=== PATIENT | female | born 1975 | race Caucasian/White ===

== ENCOUNTER 2018-03-22 18:39 | Emergency (ER) | payer SELFPAY ==
--- NOTE | 2018-03-22 19:02 | DI.CT.S_ITS ---
PROCEDURE: CT ANGIO CHEST PE PROTOCOL INDICATIONS: CHEST PAIN, SHORTNESS OF BREATH, hypoxia hx CA and smoking TECHNIQUE: After the administration of intravenous contrast, 2 mm thick sections acquired from the pulmonary apices to the posterior costophrenic angles. 3-dimensional maximum intensity projection (MIP) coronal and sagittal reformats were then acquired through the thorax. For radiation dose reduction, the following was used: automated exposure control, adjustment of mA and/or kV according to patient size. COMPARISON: None. FINDINGS: Image quality: Excellent. Pulmonary arteries: Pulmonary arteries are normal in size, and demonstrate no intraluminal filling defects to suggest central pulmonary embolism. Lungs and pleura: Lungs are clear. No pleural effusions or pneumothorax. Central and peripheral airways are patent. Mediastinum: Heart size is normal, without pericardial effusion. No mediastinal or hilar adenopathy. Thoracic aorta is normal in caliber and enhancement. Esophagus is normal in caliber there is a small hernia. Bones and chest wall: No suspicious bony lesions. Ribs and thoracic spine appear intact throughout. Thyroid gland is normal. No axillary or supraclavicular adenopathy. Abdomen: Diffuse fatty infiltration in liver. Visualized upper abdominal solid organs otherwise appear normal in the early arterial phase of enhancement. IMPRESSION: 1. No evidence for central pulmonary embolism. 2. Small hiatal hernia. 3. Hepatic pseudocyst. Dictated by: Jackie Wilkinson M.D. on 03/22/2018 at 19:54 Approved by: Jackie Wilkinson M.D. on 03/22/2018 at 20:07
[2018-03-22 19:11] LABS: Add Manual Diff / Slide Review NO; Eosinophils Percent Auto 0.5 % (2-4); Hematocrit 45.8 % (36-46); Hemoglobin 15.6 g/dL (12.0-16.0); Lymphocytes Percent Auto 33.9 % (25-40); Mean Corpuscular HGB Conc 34.1 % (30-36); Mean Corpuscular Hemoglobin 30.9 PG (26-34); Mean Corpuscular Volume 90.8 fL (80-100); Monocytes Percent Auto 4.3 % (3-14); Neutrophils Absolute Auto 7100 /uL (3000-5900); Neutrophils Percent Auto 60.3 % (50-75); Platelet Count 311 X10^3/uL (150-400); Red Blood Cell Count 5.05 X10^6/uL (4.0-5.2); Red Cell Distribution Width 13.1 % (11.6-14.8); White Blood Cell Count 11.7 X10^3/uL (4.5-11.0)
[2018-03-22 19:19] LABS: Alanine Aminotransferase 40 IU/L (9-52); Albumin 4.5 g/dL (3.5-5.0); Albumin Globulin Ratio 1.4 (1.0-2.8); Alkaline Phosphatase 83 U/L (38-126); Aspartate Aminotransferase 31 IU/L (14-36); BUN Creatinine Ratio 13.8 (6-22); Bilirubin Total 0.7 mg/dL (0.2-1.3); Blood Urea Nitrogen 11 mg/dL (7-17); Calcium 9.4 mg/dL (8.4-10.2); Carbon Dioxide 26 mmol/L (22-32); Chloride 104 mmol/L (98-107); Creatine Kinase 76 U/L (30-135); Estimated Glomerular Filt Rate > 60.0 mL/min (>60); Globulin 3.2 g/dL (1.7-4.1); Glucose 85 mg/dL (70-100); HEMOLYSIS < 15 (0-50); Lipase 161 U/L (23-300); Potassium 3.7 mmol/L (3.4-5.1); Sodium 143 mmol/L (137-145); Total Protein 7.7 g/dL (6.3-8.2)
[2018-03-22] MEDS: ASPIRIN 81 MG TAB 324 MG PO (19:30)
[2018-03-22 19:31] LABS: Troponin I < 0.012 ng/mL (0.01-0.034)
[2018-03-22] MEDS: SODIUM CHLORIDE 0.9% 1,000 ML 150 ML IV (19:31)
--- NOTE | 2018-03-22 19:45 | ED.CHESTPAIN ---
HPI - Chest Pain General Chief Complaint: Chest Pain Stated Complaint: chest pain Time Seen by Provider: 03/22/18 18:42 Source: patient and family Mode of arrival: ambulatory Limitations: no limitations History of Present Illness HPI narrative: 42-year-old female, former smoker presents with her in the chief complaint of off and on occurrences of chest pain and shortness of breath the past 3 weeks. She denies provocation, palliation or radiation of her pain. She states it is sometimes pressure-like and sometimes sharp in mainly on the right side of her chest. It is not associated with any injury. She denies any recent long distance travel, surgeries or change in her activity. She feels fatigued but does not have dizziness, weakness or lightheadedness. Her shortness of breath is also episodic and at times she can become short of breath just with conversation while at times she can walk across the room without difficulty. She denies any fever or chills nor cough productive of sputum, but does admit to the occasional dry and hacking cough in the absence of hemoptysis. Additionally she had a visit with her primary recently an outpatient labs noted a potassium of 7.7 MD complaint: chest pain Onset (ago): week(s) Duration: intermittent Pain location: right chest Severity: moderate Quality: tightness and sharp Pain radiation: none Relieving factors: nothing Exacerbating factors: nothing Associated symptoms: dyspnea Treatments prior to arrival chest pain: none Related Data On Oral Contraceptives: No Allergies Allergy/AdvReac Type Severity Reaction Status Date / Time latex Allergy Mild Rash Verified 03/22/18 18:49 Review of Systems Review of Systems All systems reviewed & are unremarkable except as noted in HPI and below Constitutional Denies chills, Denies fever(s), Denies lethargy and Denies weakness Eyes Denies change in vision, Denies eye discharge, Denies irritation and Denies loss of vision ENT Ears, Nose, Mouth, and Throat: Denies change in voice, Denies neck pain and Denies sore throat Cardiovascular Reports chest pain, Denies irregular heart rhythm, Denies lightheadedness, Denies palpitations, Reports dyspnea, Denies dyspnea on exertion and Denies orthopnea Respiratory Denies cough, Reports dyspnea, Denies dyspnea on exertion and Denies wheezing Gastrointestinal Gastrointestinal: Denies abdominal pain, Denies change in bowel habits, Denies diarrhea, Denies nausea and Denies vomiting Genitourinary Denies hematuria, Denies flank pain, Denies urinary incontinence and Denies urinary urgency Musculoskeletal Denies neck pain Integumentary/Breasts Denies pruritus, Denies erythema, Denies rash and Denies wounds Neurologic Denies confusion, Denies loss of vision and Denies weakness Psychiatric Denies anxiety, Denies confusion, Denies depression, Denies homicidal ideation and Denies suicidal ideation Endocrine Denies palpitations Hematologic/Lymphatic Denies easy bruising Allergic/Immunologic Denies wheezing PFSH Medical History Cervical cancer (Acute) Surgical History History of third molar tooth extraction Status post appendectomy Status post ovarian cystectomy Exam Initial Vital Signs Initial Vital Signs: Vital Signs Pulse Rate 85 03/22/18 21:02 Respiratory Rate 14 03/22/18 21:02 Blood Pressure 123/72 03/22/18 21:02 Pulse Oximetry 98 03/22/18 21:02 Const General: cooperative, well developed and anxious Nutritional Appearance: well nourished Orientation: alert, awake, oriented x3 and not confused HENWY Head: normocephalic and atraumatic Ears: external ears normal and TM's normal bilaterally Nose: external nose normal and No nasal discharge Face and sinus: sinuses nontender, face symmetric, no sinus tenderness and No dry mucous membranes Mouth: oral mucosae normal and moist mucous membranes Teeth and gingiva: dentition normal Throat: tonsils normal and uvula midline Eyes General: appearance normal, both eyes and all related structures Eyelids: eyelids normal Conjunctivae: conjunctivae normal Sclera: sclerae normal Pupils: PERRL EOM: EOM intact bilaterally Neck Neck: normal visual inspection, trachea midline, No lymphadenopathy, No midline deformity and No JVD Lymphatic: No lymphedema Chest Chest: normal inspection of the chest Resp Effort & Inspection: normal respiratory effort, able to speak in complete sentences, no respiratory distress and no use of accessory muscles Auscultation: clear to auscultation bilaterally, no rales, no rhonchi and no wheezes Cardio Rate: regular rate Rhythm: regular rhythm Heart Sounds: no click, no gallops, no murmurs and no rubs Pulses: normal peripheral pulses GI Inspection: non-distended Palpation: soft, no hepatosplenomegaly, No guarding, No pulsatile mass and No tender Auscultation: normal bowel sounds Back/Spine/Pelvis Back: No CVA tenderness Cervical Spine: cervical ROM normal and No pain with cervical ROM Thoracic/Lumbar Spine: thoracic and lumbar spine normal to inspection Skin General: no rashes or lesions noted, No jaundice and No petechiae Neuro General: alert, oriented x3, gait normal and no focal motor deficits Speech: speech normal Extrem General: full ROM, no clubbing, cyanosis or edema, no pedal edema and no calf tenderness Psych Appearance: well kempt Mental Status: mental status grossly normal Attitude: cooperative Thought Content: normal and suicidality Judgment: judgment good Course Orders Ordered: Discontinued Medications Aspirin (Aspirin Chew) 324 mg PO NOW ONE Stop: 03/22/18 18:48 Last Admin: 03/22/18 19:30 Dose: 324 mg Sodium Chloride (Normal Saline 0.9%) 1,000 mls @ 150 mls/hr IV CONT SHAYNA Last Infusion: 03/22/18 21:00 Dose: 0 mls/hr Admin: 03/22/18 19:31 Dose: 150 mls/hr Reevaluation(s) Reevaluation #1: No active chest pain or shortness of breath. Repeat potassium notes 3.7, earlier critical value from outside facility likely a lab error Time: 19:50 MDM - Chest Pain Lab Data Result diagrams: 03/22/18 18:55 03/22/18 18:55 Lab Results 03/22/18 03/22/18 Range/Units 18:55 18:55 WBC 11.7 H (4.5-11.0) X10^3/uL RBC 5.05 (4.0-5.2) X10^6/uL Hgb 15.6 (12.0-16.0) g/dL Hct 45.8 (36-46) % MCV 90.8 (80-100) fL MCH 30.9 (26-34) PG MCHC 34.1 (30-36) % RDW 13.1 (11.6-14.8) % Plt Count 311 (150-400) X10^3/uL Neut % (Auto) 60.3 (50-75) % Lymph % (Auto) 33.9 (25-40) % [place] % (Auto) 4.3 (3-14) % Eos % (Auto) 0.5 L (2-4) % Baso % (Auto) 1.0 (0-2) % Neut # (Auto) 7100 H (0545-8281) /uL Sodium 143 (137-145) mmol/L Potassium 3.7 (3.4-5.1) mmol/L Chloride 104 (98-107) mmol/L Carbon Dioxide 26 (22-32) mmol/L BUN 11 (7-17) mg/dL Creatinine 0.80 (0.52-1.04) mg/dL Estimated GFR > 60.0 (>60) mL/min BUN/Creatinine Ratio 13.8 (6-22) Glucose 85 (70-100) mg/dL Calcium 9.4 (8.4-10.2) mg/dL Total Bilirubin 0.7 (0.2-1.3) mg/dL AST 31 (14-36) IU/L ALT 40 (9-52) IU/L Alkaline Phosphatase 83 (38-126) U/L Total Creatine Kinase 76 (30-135) U/L CK-MB (CK-2) TNP CK-MB (CK-2) Rel Index TNP Troponin I < 0.012 (0.01-0.034) ng/mL Total Protein 7.7 (6.3-8.2) g/dL Albumin 4.5 (3.5-5.0) g/dL Globulin 3.2 (1.7-4.1) g/dL Albumin/Globulin Ratio 1.4 (1.0-2.8) Lipase 161 (23-300) U/L Discharge Plan Departure Patient Disposition: Home Clinical Impression: Atypical chest pain Discharge Date/Time: 03/22/18 21:01 Interventions: ED Discharge Assessment Last Done: 03/22/18 21:02 Instructions: DI for Atypical Chest Pain Activity Restrictions/Additional Instructions: *You have been diagnosed with [ atypical chest pain and dyspnea ] *What to do: * continue to take medications as directed *Follow up with your primary care provider in 2-3 days, call for an appointment. Let them know you were seen in the Emergency Department and that we ask that you be seen in follow up *Return to ER if you should have any new, worsening or concerning symptoms Referrals: Ru Jim MD [Primary Care Provider] -
[2018-03-22 21:02] VITALS: BP 123/72; PULSE 85; RESP 14; O2SAT 98
== END 2018-03-22 21:01 | disposition home or self-care (01) ==
PROVIDERS: Emergency Provider Emergency Medicine; PCP Family Medicine
DX: R07.89 Other chest pain (principal)
CPT/HCPCS: 36591; 71275; 80053; 82550; 83690; 84484; 85025; 93005; 96360; 99282; 99285; Q9967

== ENCOUNTER → 2018-03-26 10:27 | Outpatient (CLI) | payer SELFPAY ==
--- NOTE | 2018-04-02 08:13 | PM.PFT.1 ---
Pulmonary Function Test Referral & Results Date Patient Seen: 03/26/18 Requesting provider: Shana Swift Indication: Dyspnea Results: The spirometry demonstrates an FVC of 3.97 L which is were 13% of predicted. The FEV1 was measured at 3.25 L which is 114% of predicted. The FEV1/FVC ratio was 82 which is 100% of predicted. Following the administration of bronchodilator there was no appreciable change in above normal numbers. Lung volumes show an SVC of 3.60 L which is 109% of predicted. The diffusing capacity was measured at 26.70 which is 116% of predicted. The maximum voluntary ventilation was normal Interpretation: This study demonstrates normal pulmonary function
== END ==
PROVIDERS: PCP Family Medicine; Visit Provider Internal Medicine Critical Care Medicine
DX: R06.09 Other forms of dyspnea (principal)
CPT/HCPCS: 94010; 94060; 94726; 94729

== ENCOUNTER → 2018-04-23 13:32 | Outpatient (CLI) | payer SELFPAY ==
--- NOTE | 2018-04-23 15:00 | PM.TREADMILL ---
Cardiac Stress Test Report Referral & Results Date Patient Seen: 04/23/18 Requesting provider: Marli Reed Indication: Chest pain Rest ECG: Unremarkable Procedure Note: Today following both written and verbal informed consent, the patient was exercised according to a standard Adolph protocol. The patient exercised for a total of 9 min 32 sec achieving a maximum heart rate of 189. Patient's maximum systolic blood pressure was 158. This was an estimated 10.1 MET's. Patient was quickly tachycardic and even resting heart rate was somewhat tachycardic. Her overall peak heart rate was somewhat excessive. Blood pressure response was normal Single PVC identified No ST-T segment changes identified Functional aerobic impairment rated-10% on the active scale or 110% normal Impression: No evidence of ischemia Excellent exercise capacity Tachycardia as above Please note: Actual ECG tracings can be found in the PACS system.
== END ==
PROVIDERS: PCP Family Medicine; Visit Provider Physician Assistant Medical
DX: R07.9 Chest pain, unspecified (principal); R06.02 Shortness of breath; R00.0 Tachycardia, unspecified
CPT/HCPCS: 93016; 93017; 93018

== ENCOUNTER 2020-10-11 23:03 | Emergency (ER) | payer SELFPAY ==
[2020-10-11 23:15] VITALS: BP 126/72; PULSE 80; RESP 15; TEMP 36.6; O2SAT 99; BMI 21.2
--- NOTE | 2020-10-12 00:50 | ED.GENADULT ---
HPI - General Adult General Chief complaint: Urogenital-Female Stated complaint: vag bleeding - hyst 2013 Time Seen by Provider: 10/12/20 00:49 Source: patient Mode of arrival: Ambulatory Limitations: no limitations History of Present Illness HPI narrative: 44-year-old woman with a history of hysterectomy in 2013 secondary to the abnormal vaginal bleeding, chronic constipation and a self-reported frequent urinary tract infections which she treats with extra hydration and cranberry juice. She notes that over the last week she had initially felt she was developing a urinary tract infection and began and drinking extra water and taking cranberry capsules. The symptoms have essentially resolved and today she noted gross hematuria. She comes in for further evaluation. On were specific questioning she does report some mild suprapubic tenderness and abdominal cramping that feels ?like menstrual cramps?. She has had no change to her chronic constipation. No flank pain, no other abdominal pain, no fevers, cough, chills, palpitations, dyspnea. Related Data Previous Rx's Medication Instructions Recorded sulfamethoxazole-trimethoprim 1 tab PO BID #20 tab 10/12/20 [Bactrim DS] Allergies Allergy/AdvReac Type Severity Reaction Status Date / Time latex Allergy Mild Rash Verified 03/22/18 18:49 Review of Systems Review of Systems Narrative: Remainder of complete review of systems is otherwise unremarkable except for that included in the HPI. Patient History Medical History Cervical cancer Surgical History History of third molar tooth extraction Status post appendectomy Status post ovarian cystectomy Social History Smoking Status: Never smoker Smoking Status: Never smoker Substance Use Type: does not use Exam Narrative Exam Narrative: General: Healthy appearing, in no acute distress. Able to give a complete and coherent history. Well-nourished well-developed HEENT: Moist mucous membranes, normal sclera with reactive pupils, Respiratory: Lungs are clear to auscultation, no wheezing no rales no rhonchi. Full and symmetrical air movement Cardiac: Regular rate and rhythm no murmurs no bruits Abdomen: Soft, nontender, good bowel tones, no flank pain Skin: Warm and dry, no rashes Neurologic: Grossly neurologically intact with no obvious asymmetries or abnormalities Extremities: No trauma, well perfused Psych: Cooperative, appropriate insight and affect External genitalia: Healthy vaginal mucosa with no abnormalities are and urethral orifice no blood around the urethra, vaginal introitus and no external hemorrhoids Initial Vital Signs Initial Vital Signs: Vital Signs Temperature 97.9 F 10/11/20 23:15 Pulse Rate 80 10/11/20 23:15 Respiratory Rate 15 10/11/20 23:15 Blood Pressure 126/72 10/11/20 23:15 Pulse Oximetry 99 10/11/20 23:15 Course Orders Ordered: ED Orders 10/12/20 00:30 Urine Culture Stat Urine Microscopic Stat Discontinued Medications Trimethoprim/Sulfamethoxazole (Trimeth/Sulfa 160/800 Prepack) 1 bottle MISC SEEINSTR ONE Stop: 10/12/20 01:22 Last Admin: 10/12/20 01:34 Dose: 1 bottle Documented by: NORMAN Vital Signs Vital signs: Vital Signs - 8 hr 10/11/20 23:15 10/12/20 01:35 Temperature 97.9 F Pulse Rate 80 83 Respiratory Rate 15 17 Blood Pressure 126/72 99/66 Pulse Oximetry 99 99 Medical Decision Making Lab Data Lab results reviewed: Yes I reviewed the patient's lab results. Labs: Lab Results 10/12/20 Range/Units 00:30 Urine RBC 10-30/hpf H (0-5/HPF) Urine WBC 5-10/hpf H (0-5/HPF) Ur Squamous Epith Cells 1-5 /hpf (0-5/HPF) Amorphous Sediment 1+ Urine Bacteria Moderate (10-30) H (None) Urine Mucus 1+ H (Negative) Ur Culture Indicated? Specimen cultured Urine Dip Bedside Urine Glucose Negative Bedside Urine Bilirubin - Negative Bedside Urine Ketone + 15 Urine Specific [place] 1.015 Bedside Urine Occult Blood +++ Bedside Urine pH 7.0 Bedside Urine Protein - Negative Bedside Urine Urobilinogen - Negative Bedside Urine Nitrite - Negative Bedside Urine Leukocytes + 70 Esterase Point of care testing: Urine Dip Bedside Urine Glucose Negative Bedside Urine Bilirubin - Negative Bedside Urine Ketone + 15 Urine Specific [place] 1.015 Bedside Urine Occult Blood +++ Bedside Urine pH 7.0 Bedside Urine Protein - Negative Bedside Urine Urobilinogen - Negative Bedside Urine Nitrite - Negative Bedside Urine Leukocytes + 70 Esterase [facility] Narrative Medical decision making narrative: 44-year-old woman with acute hematuria for the last 8 hours with increasing low abdominal pain but no flank pain or fevers. Urinalysis does suggest urinary tract infection. There is no evidence of more systemic infection and no vaginal discharge or bleeding. She will be treated with Bactrim and, from self reports, requests an extra 2-3 days as it always take longer for antibiotics to work for me. At this time I do not suspect pyelonephritis, sepsis, appendicitis or diverticulitis. She is post hysterectomy so do not suspect her related concerns. No evidence for pelvic inflammatory disease. Discharge Plan Departure Patient Disposition: Home Clinical Impression: Urinary tract infection Qualifiers: Urinary tract infection type: acute cystitis Hematuria presence: with hematuria Qualified Code(s): N30.01 - Acute cystitis with hematuria Instructions: DI for Urinary Tract Infection (UTI) Activity Restrictions/Additional Instructions: Thank you for coming in today Your urine does look like you have a bladder infection. There does not appear to be any blood coming from your vagina itself. I suspect the low abdominal pain/pelvic cramping sensation your having is from your bladder and is related to this bladder infection. I am going to have you start Bactrim, a sulfa antibiotic, 1 in the morning 1 at night for 10 days to treat this infection. It is very appropriate to continue drinking plenty of water and taking a cranberry capsules If you have worsening symptoms, including fevers, flank pain or uncontrolled vomiting please return to the emergency department Prescriptions: New sulfamethoxazole-trimethoprim [Bactrim DS] 800-160 mg tablet 1 tab PO BID Qty: 20 RF: 0 Referrals: Ru Jim MD [Primary Care Provider] -
[2020-10-12 01:24] LABS: Amorphous Sediment Urine 1+; Bacteria Urine Moderate (10-30); RBC Urine 10-30/HPF (0-5/HPF); Squamous Epithelial Cell Urine 1-5 /HPF (0-5/HPF); WBC Urine 5-10/HPF (0-5/HPF)
[2020-10-12 01:25] LABS: Mucus Urine 1+ (Negative)
[2020-10-12 01:26] LABS: Culture Indicated Urine Specimen Cultured
[2020-10-12] MEDS: TRIMETH/SULFA 160/800 PREPACK 1 BOTTLE MISC (01:34)
[2020-10-12 01:35] VITALS: BP 99/66; PULSE 83; RESP 17; O2SAT 99
== END 2020-10-12 01:36 | disposition home or self-care (01) ==
PROVIDERS: Emergency Provider Emergency Medicine; PCP Family Medicine
DX: N30.01 Acute cystitis with hematuria (principal)
CPT/HCPCS: 81003; 81015; 87086; 99282; 99283

== ENCOUNTER 2020-10-16 09:00 | Emergency (ER) | payer SELFPAY ==
[2020-10-16 09:12] VITALS: BP 121/63; PULSE 78; RESP 18; O2SAT 100; BMI 21.2
--- NOTE | 2020-10-16 09:38 | ED.GENADULT ---
HPI - General Adult General Chief complaint: Urogenital-Female Stated complaint: bleeding from urethra, ongoing pain Time Seen by Provider: 10/16/20 09:09 Source: patient Mode of arrival: Ambulatory Limitations: no limitations History of Present Illness HPI narrative: Otherwise healthy 44-year-old woman with a history of total abdominal hysterectomy secondary to dysfunctional uterine bleeding presents with continued hematuria. She is now having increased urethral irritation. She also complains of pelvic bloating, increasing pain discomfort. She describes no fevers, vomiting, diarrhea. She has no specific flank pain. Urine culture on October 12 actually did not grow any bacteria suggesting an acute UTI. She had been started on Septra on October 12, was seen by her primary care physician who changed her medication to Cipro. She presents to the ER today with clotting hematuria. At this time, there is no evidence for urinary tract infection and more detailed workup for her hematuria needs to be initiated. Related Data Previous Rx's Medication Instructions Recorded ciprofloxacin HCl 250 mg tablet 250 mg PO BID 7 Days #14 tab 10/13/20 Allergies Allergy/AdvReac Type Severity Reaction Status Date / Time latex Allergy Mild Rash Verified 03/22/18 18:49 Review of Systems Review of Systems Narrative: Remainder of complete review of systems is otherwise unremarkable except for that included in the HPI. Patient History Surgical History (Updated 10/16/20 @ 09:41 by Maeve Israel MD) History of third molar tooth extraction History of total abdominal hysterectomy Status post appendectomy Status post ovarian cystectomy Social History Smoking Status: Never smoker Smoking Status: Never smoker Substance Use Type: does not use Exam Narrative Exam Narrative: General: Pale appearing, in no acute distress. Able to give a complete and coherent history. Well-nourished well-developed HEENT: Moist mucous membranes, normal sclera with reactive pupils, Respiratory: Lungs are clear to auscultation, no wheezing no rales no rhonchi. Full and symmetrical air movement Cardiac: Regular rate and rhythm no murmurs no bruits Abdomen: Soft, mild discomfort with palpation of the lower abdomen and suprapubic area, good bowel tones, no flank pain Skin: Warm and dry, no rashes Neurologic: Grossly neurologically intact with no obvious asymmetries or abnormalities Extremities: No trauma, well perfused Psych: Cooperative, appropriate insight and affect Genital exam: External genitalia are examined. No obvious discharge no obvious bleeding. Minor irritation at the urethral orifice without palpable masses Initial Vital Signs Initial Vital Signs: Vital Signs Pulse Rate 78 10/16/20 09:12 Respiratory Rate 18 10/16/20 09:12 Blood Pressure 121/63 10/16/20 09:12 Pulse Oximetry 100 10/16/20 09:12 Course Orders Ordered: ED Orders 10/16/20 10:00 CT abdomen pelvis wo/w con Stat 10/16/20 10:01 Urinalysis and Microscopic Stat Vital Signs Vital signs: Vital Signs - 8 hr 10/16/20 13:05 Pulse Rate 72 Respiratory Rate 16 Blood Pressure 123/68 Pulse Oximetry 100 Medical Decision Making Lab Data Result diagrams: 10/16/20 09:30 10/16/20 09:30 Labs: Lab Results 10/16/20 10/16/20 10/16/20 Range/Units 09:30 09:30 10:01 WBC 3.6 L (4.5-11.0) X10^3/uL RBC 4.14 (4.0-5.2) X10^6/uL Hgb 13.3 (12.0-16.0) g/dL Hct 38.7 (36-46) % MCV 93.3 (80-100) fL MCH 32.0 (26-34) PG MCHC 34.3 (30-36) % RDW 13.3 (11.6-14.8) % Plt Count 195 (150-400) X10^3/uL Neut % (Auto) 38.1 L (50-75) % Lymph % (Auto) 51.1 H (25-40) % [place] % (Auto) 6.2 (3-14) % Eos % (Auto) 3.1 (2-4) % Baso % (Auto) 1.5 (0-2) % Neut # (Auto) 1400 L (0452-1934) /uL Lymph # (Auto) 1800 (8530-0242) /uL [place] # (Auto) 200 (0-900) /uL Eos # (Auto) 100 (0-450) /uL Baso # (Auto) 100 (0-100) /uL Sodium 137 (137-145) mmol/L Potassium 3.7 (3.4-5.1) mmol/L Chloride 103 (98-107) mmol/L Carbon Dioxide 26 (22-32) mmol/L BUN 4 L (7-17) mg/dL Creatinine 0.79 (0.52-1.04) mg/dL Estimated GFR > 60.0 (>60) mL/min BUN/Creatinine Ratio 5.1 L (6-22) Glucose 79 (70-100) mg/dL Calcium 9.4 (8.4-10.2) mg/dL Total Bilirubin 0.6 (0.2-1.3) mg/dL AST 26 (14-36) IU/L ALT 18 (<35) IU/L Alkaline Phosphatase 35 L (38-126) U/L Total Protein 6.8 (6.3-8.2) g/dL Albumin 4.3 (3.5-5.0) g/dL Globulin 2.5 (1.7-4.1) g/dL Albumin/Globulin Ratio 1.7 (1.0-2.8) Urine Color Yellow Urine Appearance Clear Urine pH 7.5 (4.5-8.0) Ur Specific [place] 1.010 (1.000-1.035) Urine Protein Negative (Negative) Urine Glucose (UA) Negative (Negative) g/dL Urine Ketones Negative (NEGATIVE) Urine Occult Blood 2+ H (Negative) Urine Nitrate Negative (Negative) Urine Bilirubin Negative (NEGATIVE) Urine Urobilinogen 0.2 (0.2) E.U./dL Ur Leukocyte Esterase Negative (NEGATIVE) Urine RBC 5-10/hpf H (0-5/HPF) Urine WBC None seen (0-5/HPF) Ur Squamous Epith Cells 5-10 /hpf H (0-5/HPF) Urine Bacteria None seen (None) Ur Culture Indicated? Cult not indicated Imaging Data CT scan - abdomen/pelvis: Radiologist's Impression: FINDINGS: Image quality: Excellent. Lung bases: Lung bases are clear. Heart size is normal. Urinary system: Both kidneys are normal in size, without hydronephrosis or nephrolithiasis on pre-contrast images. No perinephric fat stranding. There is normal bilateral renal enhancement. Renal calyces appear normal in morphology when filled with contrast. Opacified portions of both ureters demonstrate normal caliber. Bladder wall thickness is normal. No calcified bladder stones. Other solid organs: Liver is normal in size and enhancement. Gallbladder wall is not thickened. Biliary system is non dilated. Pancreas enhances normally. Spleen is normal in size and enhancement. No adrenal nodules. Peritoneum and bowel: Bowel loops demonstrate normal wall thickness and caliber. No free fluid or air. Nodes and vessels: No retroperitoneal or mesenteric adenopathy by size criteria. Aorta and inferior vena cava are normal in size. Abdominal wall: No ventral hernias. Pelvis: No pathologic free pelvic fluid. No inguinal hernias or adenopathy. This patient is status post hysterectomy. No adnexal masses are seen. Bones: No suspicious bony lesions. A presumed right S1 bone island is seen, as on series 6, image 73. No vertebral body compression fractures. S-shaped scoliotic curvature is seen. This patient has transitional lumbar anatomy. For the purposes of this examination, the level with the vestigial rib on the left side is considered to be T12. By this numbering scheme, the L5 level is transitional and partially sacralized. IMPRESSION: A cause of hematuria is not identified on this study. Incidental note is made of: S shaped scoliotic curvature Transitional lumbar anatomy Hysterectomy Dictated by: Orlando Dockery M.D. on 10/16/2020 at 9:25 MDM Narrative Medical decision making narrative: Otherwise healthy 44-year-old woman now with almost a week of gross hematuria associated with clots and no evidence of urinary tract infection. Cancer etiology certainly needs to be considered given the low pelvic cramping as well. Will proceed with lab work and abdominal CT and very likely will need Urology consultation and cystoscopy. 630 pm Patient calls back this evening, home on [facility]. She notes that there is a bulging for to rinsing from her urethra that is painful. She is not having any worsening bleeding. She is still able to void. She did send a picture and it looks like she may have a small urethral polyp and that may be causing much of her issues. I reassured her that there was no reason to return to the [facility] unless she was completely unable to void and they were not able to put in a catheter on [facility]. Her face sheet was hand delivered to Dr. Claros is office earlier today and they thought they would be able to see her next Thursday and said they would contact her with appointment times. Discharge Plan Departure Patient Disposition: Home Clinical Impression: Hematuria Qualifiers: Hematuria type: gross Qualified Code(s): R31.0 - Gross hematuria Instructions: DI for Hematuria Activity Restrictions/Additional Instructions: Thank you for coming in again today. You do not have a bladder infection causing this bleeding. Your CT scan is reassuring for no abnormalities in your abdomen or on the outside of your bladder or in the bladder wall itself. You do not have kidney stones or any kidney abnormalities The next step in figuring out where this bleeding is coming from will be talking with the urologist in very likely doing cystoscopy, a scope that looks actually inside the bladder to see what is causing the problem. I will call you later this afternoon after I have reviewed her case with Dr. Claros, our urologist and have an appointment available for you for follow-up as an outpatient I wish you the best Prescriptions: No Action ciprofloxacin HCl [Cipro] 250 mg tablet 250 mg PO BID 7 Days Qty: 14 RF: 0
[2020-10-16 09:42] LABS: Add Manual Diff / Slide Review NO; Basophils Absolute Auto 100 /uL (0-100); Basophils Percent Auto 1.5 % (0-2); Eosinophils Absolute Auto 100 /uL (0-450); Eosinophils Percent Auto 3.1 % (2-4); Hematocrit 38.7 % (36-46); Hemoglobin 13.3 g/dL (12.0-16.0); Lymphocytes Absolute Auto 1800 /uL (1100-4500); Lymphocytes Percent Auto 51.1 % (25-40); Mean Corpuscular HGB Conc 34.3 % (30-36); Mean Corpuscular Volume 93.3 fL (80-100); Monocytes Absolute Auto 200 /uL (0-900); Monocytes Percent Auto 6.2 % (3-14); Neutrophils Absolute Auto 1400 /uL (1500-7000); Neutrophils Percent Auto 38.1 % (50-75); Platelet Count 195 X10^3/uL (150-400); Red Blood Cell Count 4.14 X10^6/uL (4.0-5.2); Red Cell Distribution Width 13.3 % (11.6-14.8); White Blood Cell Count 3.6 X10^3/uL (4.5-11.0)
[2020-10-16 09:52] LABS: Alanine Aminotransferase 18 IU/L (<35); Albumin 4.3 g/dL (3.5-5.0); Albumin Globulin Ratio 1.7 (1.0-2.8); Alkaline Phosphatase 35 U/L (38-126); Aspartate Aminotransferase 26 IU/L (14-36); BUN Creatinine Ratio 5.1 (6-22); Bilirubin Total 0.6 mg/dL (0.2-1.3); Blood Urea Nitrogen 4 mg/dL (7-17); Calcium 9.4 mg/dL (8.4-10.2); Carbon Dioxide 26 mmol/L (22-32); Chloride 103 mmol/L (98-107); Estimated Glomerular Filt Rate > 60.0 mL/min (>60); Globulin 2.5 g/dL (1.7-4.1); Glucose 79 mg/dL (70-100); HEMOLYSIS < 15 (0-50); Potassium 3.7 mmol/L (3.4-5.1); Sodium 137 mmol/L (137-145); Total Protein 6.8 g/dL (6.3-8.2)
--- NOTE | 2020-10-16 10:00 | DI.CT.S_ITS ---
PROCEDURE: CT ABDOMEN PELVIS WO/W CON INDICATIONS: bloating, low abd pain, hematuria without infection TECHNIQUE: Optional 5 mm thick noncontrast images acquired from the diaphragm to the symphysis pubis. After the administration of intravenous contrast, 5 mm thick images acquired from the diaphragm to the symphysis pubis after a 10-minute delay. 2 mm thick coronal and sagittal reformats were then performed of the kidneys and ureters. For radiation dose reduction, the following was used: automated exposure control, adjustment of mA and/or kV according to patient size. COMPARISON: None. FINDINGS: Image quality: Excellent. Lung bases: Lung bases are clear. Heart size is normal. Urinary system: Both kidneys are normal in size, without hydronephrosis or nephrolithiasis on pre-contrast images. No perinephric fat stranding. There is normal bilateral renal enhancement. Renal calyces appear normal in morphology when filled with contrast. Opacified portions of both ureters demonstrate normal caliber. Bladder wall thickness is normal. No calcified bladder stones. Other solid organs: Liver is normal in size and enhancement. Gallbladder wall is not thickened. Biliary system is non dilated. Pancreas enhances normally. Spleen is normal in size and enhancement. No adrenal nodules. Peritoneum and bowel: Bowel loops demonstrate normal wall thickness and caliber. No free fluid or air. Nodes and vessels: No retroperitoneal or mesenteric adenopathy by size criteria. Aorta and inferior vena cava are normal in size. Abdominal wall: No ventral hernias. Pelvis: No pathologic free pelvic fluid. No inguinal hernias or adenopathy. This patient is status post hysterectomy. No adnexal masses are seen. Bones: No suspicious bony lesions. A presumed right S1 bone island is seen, as on series 6, image 73. No vertebral body compression fractures. S-shaped scoliotic curvature is seen. This patient has transitional lumbar anatomy. For the purposes of this examination, the level with the vestigial rib on the left side is considered to be T12. By this numbering scheme, the L5 level is transitional and partially sacralized. IMPRESSION: A cause of hematuria is not identified on this study. Incidental note is made of: S shaped scoliotic curvature Transitional lumbar anatomy Hysterectomy Dictated by: Orlando Dockery M.D. on 10/16/2020 at 9:25 Approved by: Orlando Dockery M.D. on 10/16/2020 at 9:28
[2020-10-16 10:07] LABS: Bacteria Urine None Seen; WBC Urine None Seen (0-5/HPF)
[2020-10-16 10:16] LABS: Appearance Urine UA CLEAR; Bilirubin Urine UA NEGATIVE (NEGATIVE); Color Urine UA YELLOW; Glucose Urine UA NEGATIVE (Negative); Ketones Urine UA NEGATIVE (NEGATIVE); Leukocyte Esterase Urine UA NEGATIVE (NEGATIVE); Nitrite Urine UA NEGATIVE (Negative); Occult Blood Urine UA 2+ (Negative); Protein Urine UA NEGATIVE (Negative); Urobilinogen Urine UA 0.2 E.U./dL (0.2)
[2020-10-16 10:30] LABS: pH Urine UA 7.5 (4.5-8.0)
[2020-10-16 10:32] LABS: Culture Indicated Urine Cult Not Indicated; RBC Urine 5-10/HPF (0-5/HPF); Squamous Epithelial Cell Urine 5-10 /HPF (0-5/HPF)
--- NOTE | 2020-10-16 11:14 | PC.NURSE ---
pt denies vaginal bleeding, states its urethral. pt heart tones and bowel sounds WNL.
[2020-10-16 13:05] VITALS: BP 123/68; PULSE 72; RESP 16; O2SAT 100
== END 2020-10-16 13:05 | disposition home or self-care (01) ==
PROVIDERS: Emergency Provider Emergency Medicine
DX: R31.0 Gross hematuria (principal); R10.30 Lower abdominal pain, unspecified
CPT/HCPCS: 36415; 74178; 80053; 81001; 85025; 99284; Q9967